=== PATIENT | female | born 2000 | race Caucasian/White ===

== ENCOUNTER 2020-11-08 17:34 | Inpatient (IN) ==
[2020-11-08] MEDS ORDERED: ONDANSETRON 4 MG/2 ML VIAL IV PRN (18:07)
[2020-11-08] MEDS ORDERED: MEPERIDINE 50 MG/1 ML VIAL IV PRN (18:07)
[2020-11-08] MEDS ORDERED: BUTORPHANOL 2 MG/ML VIAL IV PRN (18:07)
[2020-11-08 18:28] LABS: Basophils % 0.1 % (0.0-0.8); Eosinophils % 0.3 % (0.00-10.9); Hematocrit 35.4 VOL% (35.7-47.0); Hemoglobin 11.7 GM/DL (12.0-16.0); Immature Granulocytes % 0.8 %; Immature Granulocytes Absolute 0.09 #; Lymphocytes # 1.9 10*3/uL (1.4-4.0); Lymphocytes % 15.9 % (21.3-54.2); Mean Corpuscular HGB Conc 33.1 GM/DL (32-36); Mean Corpuscular Volume 87.4 FL (87-102); Mean Platelet Volume 11.5 FL (9.6-12.0); Monocytes % 6.1 % (1.7-12.7); Neutrophils % 76.8 % (38.7-73.9); Platelet Count 186 T/CUMM (130-400); Red Blood Count 4.05 MC/CUMM (3.8-5.5); Red Cell Distribution Width 14.1 % (9.3-17.3); White Blood Count 11.6 T/CUMM (4-12)
[2020-11-08] MEDS ORDERED: LACTATED RINGERS 1,000 ML IV SCH (18:30)
[2020-11-08] MEDS: LACTATED RINGERS 1,000 ML IV PRN (19:47)
[2020-11-08 20:29] LABS: INR 0.9; PT Patient Result 10.2 SECS (9.8-11.9); Partial Thromboplastin Time 26.6 SECS (23.9-33.8)
[2020-11-08 20:31] LABS: Alanine Aminotransferase 16 U/L (13-56); Albumin 2.9 G/DL (3.4-5.0); Alkaline Phosphatase 203 U/L (45-117); Aspartate Amino Transferase 16 U/L (0-37); Bilirubin,Total < 0.39 MG/DL (0.2-1.0); Blood Urea Nitrogen 10 MG/DL (7-18); Calcium 9.3 MG/DL (8.5-10.1); Carbon Dioxide 23 MMOL/L (21-32); Estimated Glom Filtration Rate 169 ML/MIN; Glucose 112 MG/DL (74-106); Osmolality,Calculated 272.8 MOS/KG (273-304); Potassium 3.7 MMOL/L (3.5-5.1); Sodium 137 MMOL/L (136-145); Total Protein 6.9 G/DL (6.4-8.2); Uric Acid 3.4 MG/DL (2.6-6.0)
[2020-11-08] MEDS: ZALEPLON 5 MG CAPSULE PO SCH (22:25)
[2020-11-09] MEDS: LACTATED RINGERS 1,000 ML IV PRN (08:16)
[2020-11-09] MEDS ORDERED: OXYTOCIN/LR 20 UNIT/1,000 ML BAG IV SCH (08:30)
[2020-11-09] MEDS ORDERED: hydrOXYzine HCL 25 MG/1 ML VIAL IM PRN (08:48)
[2020-11-09] MEDS ORDERED: PROMETHAZINE 25 MG/1 ML VIAL IM ONE (08:48)
[2020-11-09] MEDS ORDERED: FAMOTIDINE 20 MG/2 ML VIAL IV ONE (08:48)
[2020-11-09] MEDS ORDERED: ONDANSETRON 4 MG/2 ML VIAL IV ONE (08:48)
[2020-11-09] MEDS ORDERED: ePHEDrine 50 MG/ML VIAL IV PRN (08:48)
[2020-11-09] MEDS ORDERED: NALOXONE 0.4 MG/ML VIAL IV PRN (08:48)
[2020-11-09] MEDS ORDERED: CITRIC ACID/SODIUM CITRATE 30 ML UDCUP PO ONE (08:48)
[2020-11-09] MEDS ORDERED: diphenhydrAMINE 50 MG/1 ML VIAL IV PRN ×2 (08:48)
[2020-11-09] MEDS ORDERED: fentaNYL 2 MCG/ROPIV 0.2% EPID 100 ML EPIDURAL SCH (09:00)
[2020-11-09 12:09] LABS: Bilirubin,Urine Negative (Negative); Blood, Urine Negative (Negative); Glucose,Urine (UA) Negative (Negative); Ketones,Urine 5 mg/dL (Negative); Nitrite,Urine Negative (Negative); Protein,Urine Negative; Urine Appearance CLEAR (Clear); Urine Color Straw (Yellow); Urine Specific Gravity 1.005 (1.001-1.035); Urine Urobilinogen < 2.0 EU/DL (0.2-1.0)
[2020-11-09] MEDS ORDERED: METHYLERGONOVINE 0.2 MG/1 ML AMP ONE (14:05)
[2020-11-09] MEDS ORDERED: TRANEXAMIC ACID 1,000 MG/10 ML VIAL ONE (14:05)
[2020-11-09] MEDS ORDERED: miSOPROStoL 200 MCG TABLET ONE (14:05)
[2020-11-09] MEDS ORDERED: CARBOPROST TROMETHAMINE 250 MCG/ML AMP IM ONE (14:06)
[2020-11-09 15:33] LABS: Cord Arterial Blood HCO3 19.8 MMOL/L
[2020-11-09 15:42] LABS: Cord Venous Blood HCO3 21.9 MMOL/L; Cord Venous Blood PCO2 39.4 MMHG; Cord Venous Blood PO2 29.1
[2020-11-09] MEDS ORDERED: MEASLES/MUMPS/RUBELLA VACCINE 0.5 ML VIAL SUBCUT ONE (16:07)
[2020-11-09] MEDS ORDERED: LANOLIN 50% CREAM 0.3 OZ TUBE TOP PRN (16:07)
[2020-11-09] MEDS ORDERED: HYDROCORTISONE 2.5% RECTAL CREAM 30 GM TUBE TOP PRN (16:07)
[2020-11-09] MEDS ORDERED: DIPH/TET/ACEL PERT BOOSTER VACCINE 0.5 ML VIAL IM ONE (16:07)
[2020-11-09] MEDS ORDERED: BENZOCAINE 20%/MENTHOL 0.5% SPRAY 56 GM CAN TOP PRN (16:07)
[2020-11-09] MEDS ORDERED: WITCH HAZEL PADS 100/JAR TOP PRN (16:07)
[2020-11-09] MEDS ORDERED: ONDANSETRON 4 MG/2 ML VIAL IV PRN (16:07)
[2020-11-09] MEDS ORDERED: OXYTOCIN/LR 20 UNIT/1,000 ML BAG IV ONE (16:07)
[2020-11-09] MEDS ORDERED: BISACODYL 10 MG SUPP RECTAL PRN (16:07)
[2020-11-09] MEDS ORDERED: oxyCODONE/ACETAMINOPHEN 5-325 MG TABLET PO PRN (16:07)
[2020-11-09] MEDS ORDERED: RHO(D) IMMUNE GLOBULIN 300 MCG SYRINGE IM ONE (16:07)
[2020-11-09] MEDS ORDERED: ACETAMINOPHEN 325 MG TABLET PO PRN (16:07)
[2020-11-09] MEDS: oxyCODONE/ACETAMINOPHEN 5-325 MG TABLET PO PRN ×2 (17:28→23:00)
[2020-11-09] MEDS: IBUPROFEN 800 MG TABLET PO PRN (19:39)
[2020-11-09] MEDS: DOCUSATE SODIUM 100 MG CAPSULE PO SCH (20:35)
[2020-11-09] MEDS: ZALEPLON 5 MG CAPSULE PO SCH (23:07)
[2020-11-10] MEDS: IBUPROFEN 800 MG TABLET PO PRN ×3 (01:02→23:47)
[2020-11-10 07:03] LABS: Basophils % 0.3 % (0.0-0.8); Eosinophils # 0.1 10*3/uL (0.0-0.87); Eosinophils % 0.6 % (0.00-10.9); Hemoglobin 9.9 GM/DL (12.0-16.0); Immature Granulocytes % 1.3 %; Immature Granulocytes Absolute 0.14 #; Lymphocytes # 2.3 10*3/uL (1.4-4.0); Lymphocytes % 21.2 % (21.3-54.2); Mean Corpuscular HGB Conc 34.1 GM/DL (32-36); Mean Corpuscular Volume 88.4 FL (87-102); Mean Platelet Volume 11.8 FL (9.6-12.0); Monocytes % 8.5 % (1.7-12.7); Neutrophils % 68.1 % (38.7-73.9); Red Blood Count 3.28 MC/CUMM (3.8-5.5); Red Cell Distribution Width 14.2 % (9.3-17.3); White Blood Count 10.8 T/CUMM (4-12)
[2020-11-10 07:04] LABS: Platelet Count 125 T/CUMM (130-400)
[2020-11-10] MEDS: DOCUSATE SODIUM 100 MG CAPSULE PO SCH ×3 (07:47→23:49)
[2020-11-10] MEDS: FERROUS SULFATE 325 MG TABLET PO SCH (07:47)
[2020-11-10] MEDS: SERTRALINE 50 MG TABLET PO SCH (09:47)
[2020-11-10] MEDS ORDERED: RHO(D) IMMUNE GLOBULIN 300 MCG SYRINGE IM ONE (11:00)
[2020-11-10] MEDS: SIMETHICONE CHEW 80 MG TABLET PO PRN (23:50)
[2020-11-11] MEDS: DOCUSATE SODIUM 100 MG CAPSULE PO SCH (07:50)
[2020-11-11] MEDS: SERTRALINE 50 MG TABLET PO SCH (07:50)
[2020-11-11] MEDS: FERROUS SULFATE 325 MG TABLET PO SCH (07:50)
[2020-11-11 08:14] VITALS: BP 135/73
[2020-11-11] MEDS: SIMETHICONE CHEW 80 MG TABLET PO PRN (09:35)
== END 2020-11-11 12:45 | disposition home or self-care (01) | DRG 560 ==
LOC: N.LD 17:34 → N.OB 11-09 18:15
PROVIDERS: ADMIT Obstetrics & Gynecology; ATTEND Obstetrics & Gynecology